=== PATIENT | female | born 1960 | race African-American/Black ===

== ENCOUNTER 2024-02-16 16:58 | Emergency (ER) | payer OTHER ==
[~2024-02-16] VITALS: Ht 157.5 cm; Wt 55.0 kg
[2024-02-16 17:00] VITALS: BP 196/127; PULSE 92; RESP 18; TEMP 97.7; O2SAT 99
[2024-02-16] MEDS ORDERED: IBUPROFEN 600MG TABLET PO ONE (17:45)
== END 2024-02-16 18:35 | disposition left against medical advice (07) ==
LOC: ER 16:58
DX: S00.83XA Contusion of other part of head, initial encounter (principal); H57.11 Ocular pain, right eye; M25.512 Pain in left shoulder; R42 Dizziness and giddiness; R11.2 Nausea with vomiting, unspecified; I10 Essential (primary) hypertension; Y08.89XA Assault by other specified means, initial encounter; Y93.89 Activity, other specified; Y92.89 Other specified places as the place of occurrence of the external cause; Y99.8 Other external cause status
CPT/HCPCS: 99283